=== PATIENT | male | born 1950 | race Caucasian/White ===

== ENCOUNTER 2022-10-21 10:53 | Inpatient (IN) ==
--- NOTE | 2022-10-21 11:32 | Emergency Department Note ---
History of Present Illness General Chief complaint: Urinary Symptoms Stated complaint: ILLNESS, DARK URINE Time Seen by Provider: 10/21/22 11:11 Source: patient, family (Daughter who is at the bedside), RN notes reviewed and old records reviewed Mode of arrival: EMS Limitations: no limitations History of Present Illness This patient is a 71-year-old male with a complex medical history comes in after feeling sick for about a week he has had foul-smelling urine has been dark he has some frequency. He had abdominal pain and back pain at x2 he still very weak he has some pain in both his legs yesterday but that is resolved. He may have had some diarrhea at 1 point. No blood or definite melena in the stool. No rash. He has some chronic lower extremity edema which is fine if he takes his medications. He has some shoulder blade pain a couple days ago but that is gone away no chest pain occasional cough this been nonproductive. No definite sick contacts. He does have a chronic issues with hernias but he has had no pain or swelling compared to baseline he denies that he is on any blood thinners. No trauma or injury Home Medications Medication Instructions Recorded Confirmed Type amlodipine 2.5 mg tablet 2.5 mg PO BID 01/11/21 10/21/22 History aspirin 81 mg tablet 81 mg PO QAM 01/11/21 10/21/22 History carvedilol 12.5 mg tablet 12.5 mg PO BID 01/11/21 10/21/22 History evolocumab 140 mg/mL subcutaneous 140 mg subcut UD 01/11/21 10/21/22 History syringe (Repatha Syringe) furosemide 40 mg tablet 40 mg PO QAM 01/11/21 10/21/22 History losartan 50 mg tablet 50 mg PO BID 01/11/21 10/21/22 History metformin 500 mg tablet 500 mg PO BID 01/11/21 10/21/22 History semaglutide 0.25 mg or 0.5 mg (2 0.5 mg subcut WK 02/25/21 10/21/22 History mg/1.5 mL) subcutaneous pen injector (Ozempic) acetaminophen 500 mg tablet 500 mg PO Q6H PRN Pain 10/19/21 10/21/22 History famotidine 20 mg tablet (Pepcid) 20 mg PO BID 10/19/21 10/21/22 History nitroglycerin 0.4 mg sublingual 0.4 mg sublingual UD PRN Chest Pain 10/21/22 History tablet Allergies Allergy/AdvReac Type Severity Reaction Status Date / Time lamar Allergy Intermediate Scratchy Verified 01/17/22 06:06 throat metoprolol Allergy Intermediate Itching, Verified 01/17/22 06:06 edema lisinopril Allergy Mild Rash Verified 01/17/22 06:06 potato AdvReac Intermediate Scratchy Verified 01/17/22 06:06 throat (with raw potatoes/carrots) [id number] Reductase AdvReac Intermediate Muscle Verified 01/17/22 06:06 Inhibitor pain, [[id number]-Dam Reductase joint pain Inhibitor] Past Med/Surg History Medical History (Updated 10/21/22 @ 18:14 by Jovan Jefferson MD) BPH (benign prostatic hyperplasia) CAD (coronary artery disease) S/p BIENVENIDO to RCA 2019 Diabetes mellitus, type 2 NIDDM Diastolic dysfunction GERD (gastroesophageal reflux disease) Hyperlipidemia Statin intolerance Hypertension Myocardial Infarction STEMI (2019) > stent x1 NATHAN (obstructive sleep apnea) Sleep apnea CPAP Surgical History H/O inguinal hernia repair RT/LEFT Hx of bilateral hip replacements Hx of cardiac cath S/p BIENVENIDO to RCA (2019) Hx of colonoscopy Hx of lipoma removed from shoulder Hx of tooth extraction Family History Sister Family history of diabetes mellitus Brother Family history of diabetes mellitus Grandfather (Paternal) Family history of diabetes mellitus Other No family history of adverse response to anesthesia Social History Smoking Status: Never smoker Second Hand Exposure: Yes (PARENTS SMOKED); Hx Alcohol Use: Yes Alcohol type: beer Preferred Language: [place] Communication Ability: Effective Air Conditioning Supervisor Required: No Beliefs That Will Affect Care: None Current Living Situation: Spouse current occupational status: retired current occupation: retired Feels Safe at Home: Yes Assistive Devices: Denture - Upper, Denture - Lower and Glasses Review of Systems A total of 10 systems reviewed and were otherwise negative Physical Exam Vital Signs Vital Signs - 24 hr 10/21/22 11:00 10/21/22 11:25 10/21/22 11:54 Temperature 37.7 C H Temperature Source Oral Pulse Rate 95 H Pulse Rate [Apical] 99 H Pulse Rate from SpO2 Sensor Respiratory Rate 18 20 Respiratory Effort / Characteristics Non-Labored Spontaneous Non-Labored Spontaneous Respiratory Depth Normal Normal Blood Pressure 124/75 Blood Pressure [Right Arm] 127/72 Blood Pressure Mean 91 Blood Pressure Mean [Right Arm] 90 Pulse Oximetry 94 95 93 Oxygen Delivery Method Room Air Room Air Room Air Sepsis Recent Fever Within 48 Hours No Sepsis New/Unexplained Change in Mental Status No Sepsis Action Taken by Nursing No Action Required 10/21/22 12:45 10/21/22 13:23 10/21/22 14:32 Temperature Temperature Source Pulse Rate Pulse Rate [Apical] 100 H 98 H 94 H Pulse Rate from SpO2 Sensor Respiratory Rate 18 20 20 Respiratory Effort / Characteristics Non-Labored Spontaneous Non-Labored Spontaneous Non-Labored Spontaneous Respiratory Depth Normal Normal Normal Blood Pressure Blood Pressure [Right Arm] 118/66 116/69 111/64 Blood Pressure Mean Blood Pressure Mean [Right Arm] 83 84 79 Pulse Oximetry 93 92 93 Oxygen Delivery Method Room Air Room Air Room Air Sepsis Recent Fever Within 48 Hours Sepsis New/Unexplained Change in Mental Status Sepsis Action Taken by Nursing 10/21/22 11:02 10/21/22 11:10 10/21/22 11:20 Temperature Temperature Source Pulse Rate 100 H 100 H 97 H Pulse Rate [Apical] Pulse Rate from SpO2 Sensor 100 H 100 H 98 H Respiratory Rate 24 22 15 Respiratory Effort / Characteristics Respiratory Depth Blood Pressure Blood Pressure [Right Arm] Blood Pressure Mean Blood Pressure Mean [Right Arm] Pulse Oximetry 94 90 92 Oxygen Delivery Method Sepsis Recent Fever Within 48 Hours Sepsis New/Unexplained Change in Mental Status Sepsis Action Taken by Nursing 10/21/22 11:30 10/21/22 11:40 10/21/22 11:50 Temperature Temperature Source Pulse Rate 100 H 103 H 98 H Pulse Rate [Apical] Pulse Rate from SpO2 Sensor 103 H 98 H Respiratory Rate 20 20 Respiratory Effort / Characteristics Respiratory Depth Blood Pressure Blood Pressure [Right Arm] Blood Pressure Mean Blood Pressure Mean [Right Arm] Pulse Oximetry 94 92 Oxygen Delivery Method Sepsis Recent Fever Within 48 Hours Sepsis New/Unexplained Change in Mental Status Sepsis Action Taken by Nursing 10/21/22 11:54 10/21/22 11:54 10/21/22 12:00 Temperature Temperature Source Pulse Rate 99 H 99 H Pulse Rate [Apical] Pulse Rate from SpO2 Sensor Respiratory Rate 20 20 Respiratory Effort / Characteristics Respiratory Depth Blood Pressure 127/72 Blood Pressure [Right Arm] Blood Pressure Mean 90 Blood Pressure Mean [Right Arm] Pulse Oximetry Oxygen Delivery Method Sepsis Recent Fever Within 48 Hours Sepsis New/Unexplained Change in Mental Status Sepsis Action Taken by Nursing 10/21/22 12:28 10/21/22 12:33 10/21/22 12:40 Temperature Temperature Source Pulse Rate 100 H 100 H 101 H Pulse Rate [Apical] Pulse Rate from SpO2 Sensor 100 H 100 H Respiratory Rate 22 22 Respiratory Effort / Characteristics Respiratory Depth Blood Pressure Blood Pressure [Right Arm] Blood Pressure Mean Blood Pressure Mean [Right Arm] Pulse Oximetry 91 91 Oxygen Delivery Method Sepsis Recent Fever Within 48 Hours Sepsis New/Unexplained Change in Mental Status Sepsis Action Taken by Nursing 10/21/22 12:44 10/21/22 12:44 10/21/22 12:50 Temperature Temperature Source Pulse Rate 104 H 98 H Pulse Rate [Apical] Pulse Rate from SpO2 Sensor 98 H 99 H Respiratory Rate 24 14 Respiratory Effort / Characteristics Respiratory Depth Blood Pressure 118/66 Blood Pressure [Right Arm] Blood Pressure Mean 83 Blood Pressure Mean [Right Arm] Pulse Oximetry 90 90 Oxygen Delivery Method Sepsis Recent Fever Within 48 Hours Sepsis New/Unexplained Change in Mental Status Sepsis Action Taken by Nursing 10/21/22 13:00 10/21/22 13:00 10/21/22 13:10 Temperature Temperature Source Pulse Rate 99 H 99 H Pulse Rate [Apical] Pulse Rate from SpO2 Sensor 100 H 99 H Respiratory Rate 23 20 Respiratory Effort / Characteristics Respiratory Depth Blood Pressure 116/69 Blood Pressure [Right Arm] Blood Pressure Mean 84 Blood Pressure Mean [Right Arm] Pulse Oximetry 90 90 Oxygen Delivery Method Sepsis Recent Fever Within 48 Hours Sepsis New/Unexplained Change in Mental Status Sepsis Action Taken by Nursing 10/21/22 13:20 10/21/22 13:30 10/21/22 13:30 Temperature Temperature Source Pulse Rate 98 H 99 H Pulse Rate [Apical] Pulse Rate from SpO2 Sensor 98 H 101 H Respiratory Rate 20 18 Respiratory Effort / Characteristics Respiratory Depth Blood Pressure 113/66 Blood Pressure [Right Arm] Blood Pressure Mean 81 Blood Pressure Mean [Right Arm] Pulse Oximetry 90 92 Oxygen Delivery Method Sepsis Recent Fever Within 48 Hours Sepsis New/Unexplained Change in Mental Status Sepsis Action Taken by Nursing 10/21/22 13:40 10/21/22 13:50 10/21/22 14:00 Temperature Temperature Source Pulse Rate 97 H 96 H Pulse Rate [Apical] Pulse Rate from SpO2 Sensor 98 H 96 H Respiratory Rate 17 20 Respiratory Effort / Characteristics Respiratory Depth Blood Pressure 117/67 Blood Pressure [Right Arm] Blood Pressure Mean 83 Blood Pressure Mean [Right Arm] Pulse Oximetry 92 90 Oxygen Delivery Method Sepsis Recent Fever Within 48 Hours Sepsis New/Unexplained Change in Mental Status Sepsis Action Taken by Nursing 10/21/22 14:00 10/21/22 14:11 10/21/22 14:20 Temperature Temperature Source Pulse Rate 94 H 94 H 96 H Pulse Rate [Apical] Pulse Rate from SpO2 Sensor 96 H 95 H 95 H Respiratory Rate 20 22 22 Respiratory Effort / Characteristics Respiratory Depth Blood Pressure Blood Pressure [Right Arm] Blood Pressure Mean Blood Pressure Mean [Right Arm] Pulse Oximetry 90 90 90 Oxygen Delivery Method Sepsis Recent Fever Within 48 Hours Sepsis New/Unexplained Change in Mental Status Sepsis Action Taken by Nursing 10/21/22 14:30 10/21/22 14:30 Temperature Temperature Source Pulse Rate 94 H Pulse Rate [Apical] Pulse Rate from SpO2 Sensor 96 H Respiratory Rate 20 Respiratory Effort / Characteristics Respiratory Depth Blood Pressure 111/64 Blood Pressure [Right Arm] Blood Pressure Mean 79 Blood Pressure Mean [Right Arm] Pulse Oximetry 90 Oxygen Delivery Method Sepsis Recent Fever Within 48 Hours Sepsis New/Unexplained Change in Mental Status Sepsis Action Taken by Nursing General: Well developed well nourished older male who appears in no acute distress, breathing comfortably on room air. Normal speech HEENT: Normal cephalic atraumatic. Pupils are equal round and reactive to light. Extraocular movements are intact. Oropharynx is pink with moist mucous membranes. No swelling of the mouth lips or tongue. Neck: Supple with a midline trachea. No meningeal signs or stiffness, no JVD or bruits. No Stridor. Chest: Clear to auscultation bilaterally. No wheezes or rhonchi. No increased work of breathing. Heart: Regular rate and rhythm without murmurs or gallops. Abdomen: Soft nontender, nondistended without rebound guarding or rigidity. Extremities: No cyanosis clubbing or edema. No calf tenderness or assymetry. 2+ distal pulses Spine/Back. Non tender to palpation. No CVA tenderness Skin: Good turgor without rashes. Neurologic exam: Cranial nerves two through 12 are intact. Motor and sensation are intact and symmetrical throughout. Course Administered Medications Acetaminophen (Acetaminophen 325 Mg Tab) 650 mg PO Q4H PRN PRN Reason: Pain or Fever Stop: 11/20/22 17:06 Last Admin: 10/21/22 17:44 Dose: 650 mg Documented By: FLAQUITO Enoxaparin Sodium (Enoxaparin Inj 40 Mg/0.4 Ml Syr) 40 mg SQ Q24H ROBERTA Stop: 11/20/22 17:29 Last Admin: 10/21/22 17:45 Dose: 40 mg Documented By: FLAQUITO Insulin Aspart (Insulin Aspart Per Unit) 0 units SC ACHS ROBERTA Stop: 11/20/22 17:06 Last Admin: 10/21/22 17:45 Dose: 3 units Documented By: FLAQUITO Co-signed By: NRParker Discontinued Medications Ceftriaxone Sodium (Rocephin) 2,000 mg in 70 mls @ 140 mls/hr IV NOW STA Stop: 10/21/22 12:58 Last Infusion: 10/21/22 13:23 Dose: 0 mls/hr Documented By: Admin: 10/21/22 12:45 Dose: 140 mls/hr Documented By: YUKO Sodium Chloride (Nss 1000ml) 250 mls @ 999 mls/hr IV .Q16M ONE Stop: 10/21/22 12:50 Last Infusion: 10/21/22 13:03 Dose: 0 mls/hr Documented By: Admin: 10/21/22 12:45 Dose: 999 mls/hr Documented By: YUKO Sodium Chloride (Nss) 500 mls @ 125 mls/hr IV .Q4H ROBERTA Stop: 11/20/22 12:44 Last Infusion: 10/21/22 16:26 Dose: 0 mls/hr Documented By: Admin: 10/21/22 12:45 Dose: 125 mls/hr Documented By: YUKO Potassium Chloride (Potassium Chloride Crtab 20 Meq Tabcr) 40 meq PO NOW ONE Stop: 10/21/22 17:16 Last Admin: 10/21/22 17:44 Dose: 40 meq Documented By: FLAQUITO Medical Decision Making Differential Diagnosis Sepsis, UTI, obstructive uropathy, pneumonia, cardiac disease, CHF, electrolyte or metabolic abnormality Medical Records Attestation: I reviewed the patient's medical records. Home Medications Current Medication List: was personally reviewed by me Laboratory Data Attestation: I reviewed the patient's lab results. 10/21/22 11:30 10/21/22 11:30 Lab Results 10/21/22 10/21/22 10/21/22 Range/Units 11:30 11:30 11:30 WBC 3.17 L (4.8-10.8) K/ul RBC 4.53 L (4.70-6.10) M/uL Hgb 13.8 L (14.0-18.0) g/dl Hct 40.2 L (42.0-52.0) % MCV 88.7 (80.0-100.0) fL MCH 30.5 (25.0-34.0) pg MCHC 34.3 (32.0-36.0) g/dL RDW Std Deviation 39.8 (36.4-46.3) fL RDW Coeff of Zachary 12.2 (11.5-14.5) % Plt Count 153 (130-400) K/uL MPV 10.4 (9.4-12.4) fL Immature Gran % (Auto) 0.3 % Neut % (Auto) 92.8 % Lymph % (Auto) 2.5 % Cascade % (Auto) 1.9 % Eos % (Auto) 1.9 % Baso % (Auto) 0.6 % Neut # (Auto) 2.94 (1.40-6.50) K/uL Lymph # (Auto) 0.08 L (1.2-3.4) K/uL Cascade # (Auto) 0.06 L (0.11-0.59) K/uL Eos # (Auto) 0.06 (0-0.50) K/uL Baso # (Auto) 0.02 (0-0.2) K/uL Immature Gran # (Auto) 0.01 (0.01-0.20) K/uL Toxic Granulation 1+ Toxic Vacuolation 1+ Tear Drop Cells 1+ Sodium 138 (136-145) mmol/L Potassium 3.4 L (3.5-5.1) mmol/L Chloride 100 (98-107) mmol/L Carbon Dioxide 31 (21-32) mmol/L Anion Gap 7 (3-11) BUN 17 (6-23) mg/dl Creatinine 1.12 (0.6-1.4) mg/dl Est Cr Clr Drug Dosing 69.0 ml/min Est GFR ( Amer) 75.7 ml/min Est GFR (Non-Af Amer) 65.3 ml/min BUN/Creatinine Ratio 15.2 (10-20) Glucose 152 H (70-99(Fasting)) mg/dl Lactate 1.9 (0.4-2.0) mmol/L Calcium 8.6 (8.5-10.1) mg/dl Total Bilirubin 1.1 H (0.2-1.0) mg/dl AST 17 (13-39) U/L ALT 18 (7-52) U/L Alkaline Phosphatase 92 (34-104) U/L Troponin I High Sens 12.6 (0-20) pg/ml B-Natriuretic Peptide (0-100) pg/ml Total Protein 6.4 (6.0-8.3) gm/dl Albumin 3.6 (3.4-5.0) gm/dl Globulin 2.8 (2.5-4.0) gm/dl Albumin/Globulin Ratio 1.3 (0.9-2) Lipase 39 (11-82) U/L Procalcitonin (0-0.5) ng/ml SARS-CoV-2 (PCR) (Negative) Influenza Type A (PCR) (Neg) Influenza Type B (PCR) (Neg) RSV (RT-PCR) (Neg) 10/21/22 10/21/22 10/21/22 Range/Units 11:30 11:30 11:30 WBC (4.8-10.8) K/ul RBC (4.70-6.10) M/uL Hgb (14.0-18.0) g/dl Hct (42.0-52.0) % MCV (80.0-100.0) fL MCH (25.0-34.0) pg MCHC (32.0-36.0) g/dL RDW Std Deviation (36.4-46.3) fL RDW Coeff of Zachary (11.5-14.5) % Plt Count (130-400) K/uL MPV (9.4-12.4) fL Immature Gran % (Auto) % Neut % (Auto) % Lymph % (Auto) % Cascade % (Auto) % Eos % (Auto) % Baso % (Auto) % Neut # (Auto) (1.40-6.50) K/uL Lymph # (Auto) (1.2-3.4) K/uL Cascade # (Auto) (0.11-0.59) K/uL Eos # (Auto) (0-0.50) K/uL Baso # (Auto) (0-0.2) K/uL Immature Gran # (Auto) (0.01-0.20) K/uL Toxic Granulation Toxic Vacuolation Tear Drop Cells Sodium (136-145) mmol/L Potassium (3.5-5.1) mmol/L Chloride (98-107) mmol/L Carbon Dioxide (21-32) mmol/L Anion Gap (3-11) BUN (6-23) mg/dl Creatinine (0.6-1.4) mg/dl Est Cr Clr Drug Dosing ml/min Est GFR ( Amer) ml/min Est GFR (Non-Af Amer) ml/min BUN/Creatinine Ratio (10-20) Glucose (70-99(Fasting)) mg/dl Lactate (0.4-2.0) mmol/L Calcium (8.5-10.1) mg/dl Total Bilirubin (0.2-1.0) mg/dl AST (13-39) U/L ALT (7-52) U/L Alkaline Phosphatase (34-104) U/L Troponin I High Sens (0-20) pg/ml B-Natriuretic Peptide 54 (0-100) pg/ml Total Protein (6.0-8.3) gm/dl Albumin (3.4-5.0) gm/dl Globulin (2.5-4.0) gm/dl Albumin/Globulin Ratio (0.9-2) Lipase (11-82) U/L Procalcitonin 1.15 H (0-0.5) ng/ml SARS-CoV-2 (PCR) NEGATIVE (Negative) Influenza Type A (PCR) Negative (Neg) Influenza Type B (PCR) Negative (Neg) RSV (RT-PCR) Negative (Neg) Imaging Data Attestation: I personally reviewed and interpreted this imaging study as follows: My Impression: Upon my interpretation- chest x-rayno acute infiltrate, failure, pneumothorax seen Radiologist's Impression: Abdomen/Pelvis CT 10/21/22 11:[address] WITHOUT CONTRAST CT DOSE: 821.85 mGy.cm HISTORY: Acute generalized abdominal pain with fever abd pain, fever TECHNIQUE: Multiaxial CT images of the abdomen and pelvis were performed without contrast. A dose lowering technique was utilized adhering to the principles of ALARA. COMPARISON STUDY: Chest radiograph of same day FINDINGS: Mild cardiomegaly with trace pericardial effusion. Coronary artery calcifications. Mild linear scarring versus atelectasis of the basal left lower lobe. 3 mm subpleural solid nodule of the right middle lobe, image 33. No pneumatosis or pneumoperitoneum. The unenhanced spleen is mildly enlarged, 14.6 cm. Unremarkable pancreas and adrenal glands. Mild distention of the gallbladder. Hepatic steatosis with mild hepatomegaly. No hepatic mass identified. Nonspecific bilateral perinephric stranding. No ureteral calculi or hydronephrosis. Probable cyst of the posterior interpolar left kidney, 1.7 cm. Prostamegaly with urinary bladder wall thickening and partial distention. The pelvic structures are not well seen secondary to streak artifact from the hip arthroplasties. Small moderate right and moderate left inguinal hernias containing mesenteric fat, trace fluid and nonobstructed loops of bowel. Atherosclerosis of the aorta without aneurysm. 9 mm precaval lymph node on image 263. Mild nonspecific distal esophageal wall thickening. Colonic diverticulosis. No bowel obstruction or bowel wall thickening. Moderate colonic fecal retention. Normal appendix. Mild gynecomastia. Degenerative changes of the spine. Bilateral hip total joint arthroplasties. No acute fracture or destructive bone lesion identified. Mild lumbar levoscoliosis. IMPRESSION: 1. No bowel obstruction or bowel wall thickening. 2. Prostamegaly with bladder wall thickening suggestive of chronic bladder outlet obstruction. Correlate with urinalysis to exclude cystitis. 3. No urolith or hydronephrosis. 4. Left greater than right bowel-containing inguinal hernias. 5. Mild hepatosplenomegaly with hepatic steatosis. 6. Mild distention of the gallbladder. ACT 112: Negative or not required by law. The above report was generated using voice recognition software. It may contain grammatical, syntax or spelling errors. Electronically signed by: King Sanders M.D. 10/21/2022 1:22 PM Chest X-Ray 10/21/22 11:25 XR chest 1V portable HISTORY: 71 years-old Male fever acute shortness of breath with fever COMPARISON: Chest radiographs 08/09/2011 TECHNIQUE: AP view of the chest FINDINGS: Cardiomediastinal and hilar silhouettes are within normal limits. No pneumothorax, pleural effusion, airspace consolidation or overt pulmonary edema. Degenerative changes of the shoulders and spine. IMPRESSION: No acute process. ACT 112: Negative or not required by law. The above report was generated using voice recognition software. It may contain grammatical, syntax or spelling errors. Electronically signed by: King Sanders M.D. 10/21/2022 11:[address] 10/21/22 13:32 CT head/brain wo con CLINICAL HISTORY: AMS Technique: Contiguous axial CT images of the head were acquired from the base of the skull to the vertex without intravenous contrast administration. Images were viewed in brain, subdural and bone windows. Automated dose lowering techniques and/or adjustment according to patient size were utilized for this exam. Comparison: None available at the time of this dictation. Findings: Areas of decreased attenuation are present in the periventricular and subcortical white matter bilaterally consistent with small vessel ischemic disease. Generalized cerebral atrophy with commensurate enlargement of the ventricles, sulci, and cisterns is also present. There is no acute intracranial hemorrhage or evidence of acute territorial infarction. No shift of the midline structures, mass effect, or extra-axial abnormalities are shown. Atherosclerotic calcifications are present in the intracranial segments of the internal carotid arteries. Imaged portions of the paranasal sinuses and mastoid air cells are clear. The orbits appear normal. There are no acute fractures of the calvaria or scalp swelling. Impression: No acute intracranial hemorrhage, no evidence of acute territorial infarction or other acute intracranial disease process. ACT 112: Negative or not required by law. Electronically signed by: Danish Witt M.D. 10/21/2022 2:53 PM ECG Data Attestation: I personally reviewed and interpreted this ECG as follows: Indication: + chest pain Rate (beats per minute): 106 Rhythm: + normal sinus ECG Intervals/blocks: + Normal QRS, + Normal QT and + Normal [place] ECG Dewitt: + Normal ECG ST segments: + Normal ST segments ECG Findings: + Q waves (Inferiorly); no PACs or no PVCs Comparison ECG Date: from (08/09/2011) Change: the following changes noted (Has increased) MDM Narrative This patient is a 71-year-old male has a complex medical history including cardiac disease, comes in after feeling ill since Monday he has had some urinary symptoms as well as generalized weakness and back pain. I did order sepsis type work-up he is a low-grade temperature 37.7 here. Blood work including blood cultures was obtained urinalysis was obtained chest x-ray COVID testing. I also did a CAT scan of the abdomen and pelvis without contrast to rule out any obstructive uropathy and other intra-abdominal pathology. Otherwise concern for sepsis his initial blood pressure looks good and with his history of CHF. I did not want to fluid overload him so initially did not give him any fluids. His chest x-ray was clear and his BNP and troponin were normal so I did give him a 250 cc normal saline bolus and ran out relief fluids. His lactic acid is not elevated nor is his white count and his been normotensive so he I do not think he needs a 30/kg bolus at this rate anyways. His family thinks he is a little more confused than normal and he does have a UTI which I think is causing this. CAT scan the abdomen shows findings consistent with cystitis likely. I did di scuss and consult her ED pharmacist for his antibiotic choice and we went through his chart. We have chosen to give him Rocephin 2 g IV which was ordered. I called and talked to the Eduarda Rubio and discussed the case with her and she agrees with the plan and they will come see the patient in ER and admit him for these measures. I discussed the plan with the family and they are happy with the plan and he will be admitted for further treatment and evaluation Continuous cardiac monitoring: Orders placed in EMR for continuous monitoring and evaluation advisor. Upon my interpretation the patient was noted to be in normal sinus rhythm rate of 90 Impression & Plan Metabolic encephalopathy, UTI (urinary tract infection), Lab test negative for COVID-19 virus, Abdominal pain, suprapubic, DM2 (diabetes mellitus, type 2) Discharge Plan Visit Data Chief Complaint: Urinary Symptoms Stated Complaint: ILLNESS, DARK URINE ED Provider: Jovan Jefferson Discharge Problem: Metabolic encephalopathy, UTI (urinary tract infection), Lab test negative for COVID-19 virus, Abdominal pain, suprapubic, DM2 (diabetes mellitus, type 2) Discharge Instructions Interventions: ED Discharge Assessment Last Done: 10/21/22 16:45
[2022-10-21 11:48] LABS: Hematocrit (blood only) 40.2 % (42.0-52.0); Hemoglobin 13.8 g/dl (14.0-18.0); Mean Corpuscular Hemoglobin 30.5 pg (25.0-34.0); Mean Corpuscular Hgb Conc 34.3 g/dL (32.0-36.0); Mean Corpuscular Volume 88.7 fL (80.0-100.0); Mean Platelet Volume 10.4 fL (9.4-12.4); Platelet Count 153 K/uL (130-400); RDW Coefficient of Variation 12.2 % (11.5-14.5); RDW Standard Deviation 39.8 fL (36.4-46.3); Red Blood Count 4.53 M/uL (4.70-6.10); White Blood Count 3.17 K/ul (4.8-10.8)
--- NOTE | 2022-10-21 11:55 | XRay Report ---
XR chest 1V portable HISTORY: 71 years-old Male fever acute shortness of breath with fever COMPARISON: Chest radiographs 08/09/2011 TECHNIQUE: AP view of the chest FINDINGS: Cardiomediastinal and hilar silhouettes are within normal limits. No pneumothorax, pleural effusion, airspace consolidation or overt pulmonary edema. Degenerative changes of the shoulders and spine. IMPRESSION: No acute process. ACT 112: Negative or not required by law. The above report was generated using voice recognition software. It may contain grammatical, syntax o r spelling errors. Electronically signed by: King Sanders M.D. 10/21/2022 11:53 AM
[2022-10-21 11:57] LABS: Appearance Urine Cloudy (Clear); Bacteria Urine Automated 4+ (Negative); Bilirubin Urine Negative (Negative); Blood Urine 2+ (Negative); Color Urine Yellow; Glucose Urine UA Negative (Negative); Ketones Urine Negative (Negative); Leukocyte Esterase Urine 3+ (Negative); Nitrite Urine Positive (Negative); Protein Urine 2+ (Negative); Specific Gravity Urine 1.014 (1.000-1.030); Urobilinogen Urine Negative (Negative); WBC Urine Automated >30 /hpf (0-5); pH Urine 6.5 (4.5-7.5)
[2022-10-21 12:11] LABS: Basophils # (auto) 0.02 K/uL (0-0.2); Basophils % (auto) 0.6 %; Eosinophils # (auto) 0.06 K/uL (0-0.50); Eosinophils % (auto) 1.9 %; Immature Granulocytes # (auto) 0.01 K/uL (0.01-0.20); Immature Granulocytes % (auto) 0.3 %; Lymphocytes # (auto) 0.08 K/uL (1.2-3.4); Lymphocytes % (auto) 2.5 %; Monocytes # (auto) 0.06 K/uL (0.11-0.59); Monocytes % (auto) 1.9 %; Neutrophils # (auto) 2.94 K/uL (1.40-6.50); Neutrophils % (auto) 92.8 %; Tear Drop Cells 1+; Toxic Granulation 1+; Toxic Vacuolation 1+
[2022-10-21 12:22] LABS: Troponin I High Sensitivity 12.6 pg/ml (0-20)
[2022-10-21] MEDS ORDERED: cefTRIAXone SODIUM 2,000 MG/70 ML BAG IV STA (12:29)
[2022-10-21] MEDS ORDERED: SODIUM CHLORIDE 0.9% 1000ML 250 ML IV ONE (12:35)
[2022-10-21 12:39] LABS: Albumin Level 3.6 gm/dl (3.4-5.0); Bilirubin,Total 1.1 mg/dl (0.2-1.0); Calcium 8.6 mg/dl (8.5-10.1); Potassium 3.4 mmol/L (3.5-5.1)
[2022-10-21 12:45] LABS: Albumin Globulin Ratio 1.3 (0.9-2); BUN Creatinine Ratio 15.2 (10-20); Est GFR (African American) 75.7 ml/min; Est GFR (Non-African American) 65.3 ml/min; Globulin 2.8 gm/dl (2.5-4.0); Total Protein 6.4 gm/dl (6.0-8.3)
[2022-10-21] MEDS: SODIUM CHLORIDE 0.9% 500 ML IV SCH (12:45)
[2022-10-21 13:03] LABS: Influenza A virus by PCR Negative (Neg); Influenza B virus by PCR Negative (Neg); RSV by PCR Negative (Neg); SARS CoV2 RNA(COVID-19) Ceph NEGATIVE (Negative)
--- NOTE | 2022-10-21 13:24 | CT Scan Report ---
ABDOMEN AND PELVIS CT WITHOUT CONTRAST CT DOSE: 821.85 mGy.cm HISTORY: Acute generalized abdominal pain with fever abd pain, fever TECHNIQUE: Multiaxial CT images of the abdomen and pelvis were performed without contrast. A dose lo wering technique was utilized adhering to the principles of ALARA. COMPARISON STUDY: Chest radiograph of same day FINDINGS: Mild cardiomegaly with trace pericardial effusion. Coronary artery calcifications. Mild jeff ear scarring versus atelectasis of the basal left lower lobe. 3 mm subpleural solid nodule of the rig ht middle lobe, image 33. No pneumatosis or pneumoperitoneum. The unenhanced spleen is mildly enlarged, 14.6 cm. Unremarkable pancreas and adrenal glands. Mild dis tention of the gallbladder. Hepatic steatosis with mild hepatomegaly. No hepatic mass identified. Non specific bilateral perinephric stranding. No ureteral calculi or hydronephrosis. Probable cyst of the posterior interpolar left kidney, 1.7 cm. Prostamegaly with urinary bladder wall thickening and part ial distention. The pelvic structures are not well seen secondary to streak artifact from the hip art hroplasties. Small moderate right and moderate left inguinal hernias containing mesenteric fat, trace fluid and nonobstructed loops of bowel. Atherosclerosis of the aorta without aneurysm. 9 mm precaval lymph node on image 263. Mild nonspecific distal esophageal wall thickening. Colonic diverticulosis. No bowel obstruction or b owel wall thickening. Moderate colonic fecal retention. Normal appendix. Mild gynecomastia. Degenerat kumra changes of the spine. Bilateral hip total joint arthroplasties. No acute fracture or destructive bone lesion identified. Mild lumbar levoscoliosis. IMPRESSION: 1. No bowel obstruction or bowel wall thickening. 2. Prostamegaly with bladder wall thickening suggestive of chronic bladder outlet obstruction. Correl ate with urinalysis to exclude cystitis. 3. No urolith or hydronephrosis. 4. Left greater than right bowel-containing inguinal hernias. 5. Mild hepatosplenomegaly with hepatic steatosis. 6. Mild distention of the gallbladder. ACT 112: Negative or not required by law. The above report was generated using voice recognition software. It may contain grammatical, syntax o r spelling errors. Electronically signed by: King Sanders M.D. 10/21/2022 1:22 PM
--- NOTE | 2022-10-21 13:24 | History & Physical Report ---
Date of Service October 21, 2022 Assessment & Plan (1) UTI (urinary tract infection): Plan: Patient is 71 y/o M with PMH DM II, HTN, dyslipidemia, CAD, [place] s/p BIENVENIDO RCA in 2019, chronic diastolic dysfunction, GERD, BPH, NATHAN presented to ER with complaints of dysuria x 6 days, generalized weakness, anorexia. Tactile fever with rigors today, confusion today In ER T: 37.7C, P: 95-100, R: 20, BP: 124/75, 94% on RA WBC: 3.2, Lactate: 1.9, procalcitonin: 1.15. Negative COVID-19, FLU, RSV PCR UA: +nitrite, 3+leuk esterase CXR: no acute process CT Abd/pelvis: Prostamegaly with bladder wall thickening suggestive of chronic bladder outlet obstruction. Correlate with urinalysis to exclude cystitis. No urolith or hydronephrosis. In ER given 250ml NSS bolus, Rocephin Urine culture pending Blood culture pending Possible Pyelonephritis with L CVA tenderness on exam IVF Rocephin Fall precautions PT/OT eval CBC, BMP in am (2) Metabolic encephalopathy: Plan: AMS likely secondary to UTI CT Head: negative acute intracranial abnormality Monitor (3) Hypokalemia: Plan: K: 3.4. Magnesium: 1.7 Replace and monitor (4) Diabetes mellitus, type 2: Plan: A1c: 5.7 on 07/29/22 Hold home glycemic meds Novolog sliding scale per protocol (5) CAD (coronary artery disease): Plan: [place] S/P BIENVENIDO RCA in 2019 Continue aspirin, carvedilol (6) Hypertension: Plan: Stable Continue carvedilol, losartan, amlodipien with holding parameters (7) Hyperlipidemia: Plan: History statin intolerance On Repatha every 2 weeks (8) Diastolic dysfunction: Plan: 02/2020 Echo: EF: 51%, grade 1 diastolic dysfunction Hold Lasix and reevaluate tomorrow (9) NATHAN (obstructive sleep apnea): Plan: CPAP HS (10) GERD (gastroesophageal reflux disease): Plan: Continue pepcid DVT Prophylaxis Lovenox SQ Full Code as per discussion with pt and pt's Follows with Dr Damon for routine care Pt was seen and care coordinated with Dr Zayas. See addendum I spent a total of 75 minutes reviewing notes, outpatient records, labs, medication, coordinating, documenting and providing care for this patient excluding time spent in the performance of separately billed services. History of Present Illness Chief Complaint: not feeling well Primary Care Provider: Raghavendra Damon DO Patient is 71 y/o M with PMH DM II, HTN, dyslipidemia, CAD, [place] s/p BIENVENIDO RCA in 2019, chronic diastolic dysfunction, GERD, BPH, NATHAN presented to ER with complaints of not feeling well and dysuria x 6 days. History of obtained from patient as well as patient's and patient's daughter and chart review. Patient states for the past 6 days has been having dysuria. Has been noticing dark-colored urine. 6 days ago started not feeling well with decreased appetite, malaise. Was having dizziness with standing. Denies headache or syncope. Has not been eating or drinking well. Patient complaining of discomfort to abdomen around his umbilicus describing it as "empty stomach hungry feeling". Last couple days has been having bilateral mid back pain. Past several days with generalized weakness with increased weakness today. Having difficulty walking. Today family noted patient with confusion. Had 2 negative home COVID-19 tests this week. Last night with sweats. Did not take temperature. This morning with chills and rigors. Denies ill contacts. Family wanted patient to be seen several days ago however he refused. Today with increased weakness and noted confusion brought patient to ER. Denies history of kidney stones. Denies N/V/D/C, SOTELO, syncope, vision changes, neck pain, CP, SOB, orthopnea, palpitations, cough, sore throat, choking, otalgia, rhinorrhea, paresthesias, extremity edema, rashes, hematuria. Allergies Allergy/AdvReac Type Severity Reaction Status Date / Time lamar Allergy Intermediate Scratchy Verified 01/17/22 06:06 throat metoprolol Allergy Intermediate Itching, Verified 01/17/22 06:06 edema lisinopril Allergy Mild Rash Verified 01/17/22 06:06 potato AdvReac Intermediate Scratchy Verified 01/17/22 06:06 throat (with raw potatoes/carrots) [id number] Reductase AdvReac Intermediate Muscle Verified 01/17/22 06:06 Inhibitor pain, [[id number] Reductase joint pain Inhibitor] Home Medications Medication Instructions Recorded Confirmed Type amlodipine 2.5 mg tablet 2.5 mg PO BID 01/11/21 10/21/22 History aspirin 81 mg tablet 81 mg PO QAM 01/11/21 10/21/22 History carvedilol 12.5 mg tablet 12.5 mg PO BID 01/11/21 10/21/22 History evolocumab 140 mg/mL subcutaneous 140 mg subcut UD 01/11/21 10/21/22 History syringe (Repatha Syringe) furosemide 40 mg tablet 40 mg PO QAM 01/11/21 10/21/22 History losartan 50 mg tablet 50 mg PO BID 01/11/21 10/21/22 History metformin 500 mg tablet 500 mg PO BID 01/11/21 10/21/22 History semaglutide 0.25 mg or 0.5 mg (2 0.5 mg subcut WK 02/25/21 10/21/22 History mg/1.5 mL) subcutaneous pen injector (Ozempic) acetaminophen 500 mg tablet 500 mg PO Q6H PRN Pain 10/19/21 10/21/22 History famotidine 20 mg tablet (Pepcid) 20 mg PO BID 10/19/21 10/21/22 History nitroglycerin 0.4 mg sublingual 0.4 mg sublingual UD PRN Chest Pain 10/21/22 10/21/22 History tablet Past Med/Surg History Medical History (Updated 10/21/22 @ 14:43 by Alysa Vargas PA-C) BPH (benign prostatic hyperplasia) CAD (coronary artery disease) S/p BIENVENIDO to RCA 2019 Diabetes mellitus, type 2 NIDDM Diastolic dysfunction GERD (gastroesophageal reflux disease) Hyperlipidemia Statin intolerance Hypertension Myocardial Infarction STEMI (2019) > stent x1 NATHAN (obstructive sleep apnea) Sleep apnea CPAP Surgical History H/O inguinal hernia repair RT/LEFT Hx of bilateral hip replacements Hx of cardiac cath S/p BIENVENIDO to RCA (2019) Hx of colonoscopy Hx of lipoma removed from shoulder Hx of tooth extraction Family History Sister Family history of diabetes mellitus Brother Family history of diabetes mellitus Grandfather (Paternal) Family history of diabetes mellitus Other No family history of adverse response to anesthesia Social History Smoking Status: Never smoker Second Hand Exposure: Yes (PARENTS SMOKED); Hx Alcohol Use: Yes Alcohol type: beer Preferred Language: Latvian Communication Ability: Effective Appellate Conferee Required: No Beliefs That Will Affect Care: None Current Living Situation: Spouse current occupational status: retired current occupation: retired Feels Safe at Home: Yes Assistive Devices: Denture - Upper, Denture - Lower and Glasses Review of Systems Review of Systems: All systems reviewed & are unremarkable except as noted in HPI & below Physical Exam Physical Exam: General: no acute distress, WDWN Head: normocephalic, atraumatic Eyes: PERRL, EOM's intact, conjunctiva non-injected, anicteric ENT: normal inspection external ears, nose, mucous membranes mildly dry Neck: supple, trachea midline Lungs: clear, no respiratory distress, no wheezing/rhonchi/rales CV: RRR, no murmur, trace pretibial edema Abd: normal BS, soft, +tenderness to palpation suprapubic, +left CVA tenderness to percussion Ext: no cyanosis, no calf tenderness Neuro: A&O to person, month, day, year. [facility] for location. +intermittent confusion noted, no focal deficits noted, normal affect Skin: warm, dry Results & Data Results & Data ([facility]) Vital Signs (Past 12 Hours) Vital Signs Temp Pulse Pulse Resp BP BP Pulse Ox 10/21/22 12:45 100 H 18 118/66 93 10/21/22 11:54 99 H 20 127/72 93 10/21/22 11:25 95 10/21/22 11:00 37.7 C H 95 H 18 124/75 94 O2 Del Method 10/21/22 12:45 Room Air 10/21/22 11:54 Room Air 10/21/22 11:25 Room Air 10/21/22 11:00 Room Air Laboratory Results Short CBC 10/21/22 Range/Units 11:30 WBC 3.17 L (4.8-10.8) K/ul Hgb 13.8 L (14.0-18.0) g/dl Hct 40.2 L (42.0-52.0) % Plt Count 153 (130-400) K/uL BMP 10/21/22 11:30 Sodium 138 Potassium 3.4 L Chloride 100 Carbon Dioxide 31 BUN 17 Creatinine 1.12 Glucose 152 H Calcium 8.6 Liver Function 10/21/22 Range/Units 11:30 Total Bilirubin 1.1 H (0.2-1.0) mg/dl AST 17 (13-39) U/L ALT 18 (7-52) U/L Alkaline Phosphatase 92 (34-104) U/L Albumin 3.6 (3.4-5.0) gm/dl Urine 10/21/22 Range/Units Unknown Urine Color Yellow Urine Appearance Cloudy A (Clear) Urine pH 6.5 (4.5-7.5) Ur Specific [place] 1.014 (1.000-1.030) Urine Protein 2+ H (Negative) Urine Glucose (UA) Negative (Negative) Diagnostic Findings Abdomen/Pelvis CT 10/21/22 11:[address] WITHOUT CONTRAST CT DOSE: 821.85 mGy.cm HISTORY: Acute generalized abdominal pain with fever abd pain, fever TECHNIQUE: Multiaxial CT images of the abdomen and pelvis were performed without contrast. A dose lowering technique was utilized adhering to the principles of ALARA. COMPARISON STUDY: Chest radiograph of same day FINDINGS: Mild cardiomegaly with trace pericardial effusion. Coronary artery calcifications. Mild linear scarring versus atelectasis of the basal left lower lobe. 3 mm subpleural solid nodule of the right middle lobe, image 33. No pneumatosis or pneumoperitoneum. The unenhanced spleen is mildly enlarged, 14.6 cm. Unremarkable pancreas and adrenal glands. Mild distention of the gallbladder. Hepatic steatosis with mild hepatomegaly. No hepatic mass identified. Nonspecific bilateral perinephric stranding. No ureteral calculi or hydronephrosis. Probable cyst of the posterior interpolar left kidney, 1.7 cm. Prostamegaly with urinary bladder wall thickening and partial distention. The pelvic structures are not well seen secondary to streak artifact from the hip arthroplasties. Small moderate right and moderate left inguinal hernias containing mesenteric fat, trace fluid and nonobstructed loops of bowel. Atherosclerosis of the aorta without aneurysm. 9 mm precaval lymph node on image 263. Mild nonspecific distal esophageal wall thickening. Colonic diverticulosis. No bowel obstruction or bowel wall thickening. Moderate colonic fecal retention. Normal appendix. Mild gynecomastia. Degenerative changes of the spine. Bilateral hip total joint arthroplasties. No acute fracture or destructive bone lesion identified. Mild lumbar levoscoliosis. IMPRESSION: 1. No bowel obstruction or bowel wall thickening. 2. Prostamegaly with bladder wall thickening suggestive of chronic bladder outlet obstruction. Correlate with urinalysis to exclude cystitis. 3. No urolith or hydronephrosis. 4. Left greater than right bowel-containing inguinal hernias. 5. Mild hepatosplenomegaly with hepatic steatosis. 6. Mild distention of the gallbladder. ACT 112: Negative or not required by law. The above report was generated using voice recognition software. It may contain grammatical, syntax or spelling errors. Electronically signed by: King Sanders M.D. 10/21/2022 1:22 PM Chest X-Ray 10/21/22 11:25 XR chest 1V portable HISTORY: 71 years-old Male fever acute shortness of breath with fever COMPARISON: Chest radiographs 08/09/2011 TECHNIQUE: AP view of the chest FINDINGS: Cardiomediastinal and hilar silhouettes are within normal limits. No pneumothorax, pleural effusion, airspace consolidation or overt pulmonary edema. Degenerative changes of the shoulders and spine. IMPRESSION: No acute process. ACT 112: Negative or not required by law. The above report was generated using voice recognition software. It may contain grammatical, syntax or spelling errors. Electronically signed by: King Sanders M.D. 10/21/2022 11:53 AM ECG Rate (beats per minute): 106 Rhythm: sinus tachycardia Additional Comments: Q waves inferior leads. Seen on prior EKG from 07/28/2021 T wave inversion inferior seen on prior EKG from 03/16/2020 Supervising Physician Co-Signing Physician Notes Attending addendum: The patient was seen and examined in the emergency room in presence of the family members He has been complaining of lower abdominal pain associated with dark urine and dysuria since Monday last He also complains to have feeling cold and chilly associated with change in mental status noticed by the family members He has been feeling better since he has been in the emergency room On examination Lying in bed comfortably Hemodynamically stable, afebrile and pulse rate 94/min Chest-clear to auscultate bilaterally Heart-S1-S2, regular Abdomen-mildly tender in the hypogastrium, no swelling, no tenderness in the renal angles, bowel sound present Extremities-trace edema bilaterally [employer]EM[employer]-alert, awake and oriented x3, no focal sensory or no motor deficit appreciated His admission labs, EKG and imaging studies reviewed UA suggestive of infection Started on intravenous ceftriaxone after taking blood and sending urine for culture Has mild dehydration-we will give a small amount of intravenous Agree with assessment and plan as stated above by JOSE Nolen Dr
--- NOTE | 2022-10-21 14:55 | CT Scan Report ---
CT head/brain wo con CLINICAL HISTORY: AMS Technique: Contiguous axial CT images of the head were acquired from the base of the skull to the nikki rogerio without intravenous contrast administration. Images were viewed in brain, subdural and bone [facility]. Automated dose lowering techniques and/or adjustment according to patient size were utilized for this exam. Comparison: None available at the time of this dictation. Findings: Areas of decreased attenuation are present in the periventricular and subcortical white matter bilate rally consistent with small vessel ischemic disease. Generalized cerebral atrophy with commensurate e nlargement of the ventricles, sulci, and cisterns is also present. There is no acute intracranial hem orrhage or evidence of acute territorial infarction. No shift of the midline structures, mass effect, or extra-axial abnormalities are shown. Atherosclerotic calcifications are present in the intracran ial segments of the internal carotid arteries. Imaged portions of the paranasal sinuses and mastoid air cells are clear. The orbits appear normal. There are no acute fractures of the calvaria or scalp swelling. Impression: No acute intracranial hemorrhage, no evidence of acute territorial infarction or other acute intracra nial disease process. ACT 112: Negative or not required by law. Electronically signed by: Danish Witt M.D. 10/21/2022 2:53 PM
--- NOTE | 2022-10-21 15:32 | Electrocardiogram Report ---
Test Reason : Blood Pressure : / mmHG Vent. Rate : 106 BPM Atrial Rate : 106 BPM P-R Int : 172 ms QRS Dur : 092 ms QT Int : 348 ms P-R-T Axes : 049 -02 018 degrees QTc Int : 462 ms Poor data quality, interpretation may be adversely affected Sinus tachycardia Inferior infarct , age undetermined Abnormal ECG When compared with ECG of 09-AUG-2011 09:37, Vent. rate has increased BY 52 BPM Inferior infarct is now Present T wave inversion now evident in Inferior leads QT has lengthened Confirmed by Donaldo Jauregui ([id number]) on 10/21/2022 3:32:07 PM Referred By: REFERRED SELF Confirmed By:Sushil Jauregui
[2022-10-21] MEDS ORDERED: CARBOHYDRATES FOR HYPOGLYCEMIA PO PRN (17:07)
[2022-10-21] MEDS ORDERED: GLUCAGON FOR INJ 1 MG VIAL SQ PRN (17:07)
[2022-10-21] MEDS ORDERED: GLUCOSE 40% GEL 15 GM TUBE PO PRN (17:07)
[2022-10-21] MEDS ORDERED: GLUCOSE 10 TAB/TUBE PO PRN (17:07)
[2022-10-21] MEDS ORDERED: DEXTROSE 50% 50 ML SYRINGE IV PRN (17:07)
[2022-10-21] MEDS ORDERED: POLYETHYLENE (MIRALAX) 17 GM PACK PO PRN (17:07)
[2022-10-21] MEDS ORDERED: MAGNESIUM HYDROXIDE SUSP 30 ML UDC PO PRN (17:07)
[2022-10-21] MEDS ORDERED: POTASSIUM CHLORIDE CRTAB 20 MEQ TABCR PO ONE (17:15)
[2022-10-21] MEDS: ACETAMINOPHEN 325 MG TAB PO PRN ×2 (17:44→23:47)
[2022-10-21] MEDS: INSULIN ASPART PER UNIT SC SCH ×2 (17:45→20:15)
[2022-10-21] MEDS: ENOXAPARIN INJ 40 MG/0.4 ML SYR SQ SCH (17:45)
[2022-10-21] MEDS: SODIUM CHLORIDE 0.9% 1000ML 1,000 ML IV SCH (19:58)
[2022-10-21] MEDS: carvediloL 12.5 MG TAB PO SCH (20:14)
[2022-10-21] MEDS: FAMOTIDINE 20 MG TAB PO SCH (20:14)
[2022-10-21] MEDS ORDERED: amLODIPine BESYLATE 5 MG TAB PO SCH (21:00)
[2022-10-21] MEDS ORDERED: LOSARTAN POTASSIUM 50 MG TAB PO SCH (21:00)
[2022-10-22] MEDS: SODIUM CHLORIDE 0.9% 500 ML IV SCH (00:11)
[2022-10-22 02:21] LABS: A calco-baum cmplx NotReported Not Detected (NotDetected); Bact fragilis Not Reported Not Detected (NotDetected); C auris Not Reported Not Detected (NotDetected); CTX-M Resistant Gene Not Detected (NotDetected); Calbicans Not Reported Not Detected (NotDetected); Candida glabrata Not Reported Not Detected (NotDetected); Candida krusei Not Reported Not Detected (NotDetected); Cneoformans/gatti Not Reported Not Detected (NotDetected); Cparapsilosis Not Reported Not Detected (NotDetected); Ctropicalis Not Reported Not Detected (NotDetected); E cloacae compx Not Reported Not Detected (NotDetected); Efaecalis Not Reported Not Detected (NotDetected); Efaecium Not Reported Not Detected (NotDetected); Enterobacterales DETECTED (NotDetected); Enterobacterales Not Reported DETECTED (NotDetected); Escherichia coli Not Reported DETECTED (NotDetected); H influenzae Not Reported Not Detected (NotDetected); IMP Resistant Gene Not Detected (NotDetected); K aerogenes Not Reported Not Detected (NotDetected); KPC Resistant Gene Not Detected (NotDetected); Koxytoca Not Reported Not Detected (NotDetected); Kpneumoniae grp Not Reported Not Detected (NotDetected); Lmonocyt Not Reported Not Detected (NotDetected); N meningitidis Not Reported Not Detected (NotDetected); NDM Resistant Gene Not Detected (NotDetected); OXA 48 Like Resistant Gene Not Detected (NotDetected); P aeruginosa Not Reported Not Detected (NotDetected); Proteus spp Not Reported Not Detected (NotDetected); Salmonella spp Not Reported Not Detected (NotDetected); Smarcescens Not Reported Not Detected (NotDetected); Staph lugdunensis Not Reported Not Detected (NotDetected); Staph spp. Not Reported Not Detected (NotDetected); Staphaureus Not Reported Not Detected (NotDetected); Staphepi Not Reported Not Detected (NotDetected); Stenmaltophilia Not Reported Not Detected (NotDetected); Strep agal(GrpB) Not Reported Not Detected (NotDetected); Strep pneum Not Reported Not Detected (NotDetected); Strep pyog (GrpA) Not Reported Not Detected (NotDetected); Strep spp Not Reported Not Detected (NotDetected); VIM Resistant Gene Not Detected (NotDetected); mcr-1 Colistin Resistant Gene Not Detected (NotDetected)
[2022-10-22 05:51] LABS: Basophils # (auto) 0.03 K/uL (0-0.2); Basophils % (auto) 0.4 %; Eosinophils # (auto) 0.09 K/uL (0-0.50); Eosinophils % (auto) 1.3 %; Hematocrit (blood only) 33.9 % (42.0-52.0); Hemoglobin 11.8 g/dl (14.0-18.0); Immature Granulocytes # (auto) 0.04 K/uL (0.01-0.20); Immature Granulocytes % (auto) 0.6 %; Lymphocytes # (auto) 0.49 K/uL (1.2-3.4); Mean Corpuscular Hemoglobin 30.3 pg (25.0-34.0); Mean Corpuscular Hgb Conc 34.8 g/dL (32.0-36.0); Mean Corpuscular Volume 87.1 fL (80.0-100.0); Mean Platelet Volume 10.5 fL (9.4-12.4); Monocytes # (auto) 0.97 K/uL (0.11-0.59); Monocytes % (auto) 13.8 %; Neutrophils # (auto) 5.42 K/uL (1.40-6.50); Neutrophils % (auto) 76.9 %; Platelet Count 141 K/uL (130-400); RDW Coefficient of Variation 12.3 % (11.5-14.5); RDW Standard Deviation 39.8 fL (36.4-46.3); Red Blood Count 3.89 M/uL (4.70-6.10); White Blood Count 7.04 K/ul (4.8-10.8)
[2022-10-22 06:21] LABS: Calcium 7.8 mg/dl (8.5-10.1); Potassium 3.3 mmol/L (3.5-5.1)
[2022-10-22 06:26] LABS: BUN Creatinine Ratio 14.2 (10-20); Creatinine Clr Calc Pharmacy 59.7 ml/min; Est GFR (Non-African American) 56.1 ml/min
[2022-10-22] MEDS ORDERED: POTASSIUM CHLORIDE CRTAB 20 MEQ TABCR PO ONE (07:50)
[2022-10-22] MEDS: carvediloL 12.5 MG TAB PO SCH ×2 (08:07→19:48)
[2022-10-22] MEDS: ASPIRIN 81 MG ECTAB PO SCH (08:07)
[2022-10-22] MEDS: FAMOTIDINE 20 MG TAB PO SCH ×2 (08:08→19:47)
[2022-10-22] MEDS: INSULIN ASPART PER UNIT SC SCH ×4 (08:12→19:53)
[2022-10-22] MEDS: LOSARTAN POTASSIUM 25 MG TAB PO SCH ×2 (08:14→19:48)
[2022-10-22] MEDS: cefTRIAXone SODIUM 2,000 MG in DEXTROSE 5% 50 ML IV SCH (08:23)
[2022-10-22] MEDS: SODIUM CHLORIDE 0.9% 1000ML 1,000 ML IV SCH (09:23)
--- NOTE | 2022-10-22 12:27 | Hospitalist Progress Note ---
Date of Service October 22, 2022 Assessment & Plan (1) UTI (urinary tract infection): Plan: Patient is a 71 yr male with H/O PMH DM II, HTN, dyslipidemia, CAD, [place] s/p BIENVENIDO RCA in 2019, chronic diastolic dysfunction, GERD, BPH, NATHAN presented to ER with complaints of dysuria x 6 days, generalized weakness, anorexia. Tactile fever with rigors today, confusion today Complicated Urinary tract infection Gram-negative bacteremia Chronic bladder outlet obstruction Acute Metabolic Encephalopathy-POA --CXR: no acute process --CT Abd/pelvis:No bowel obstruction or bowel wall thickening. Prostamegaly with bladder wall thickening suggestive of chronic bladder outlet obstruction. Correlate with urinalysis to exclude cystitis. No urolith or hydronephrosis. Left greater than right bowel-containing inguinal hernias. Mild hepatosplenomegaly with hepatic steatosis. Mild distention of the gallbladder. --CT Head:No acute intracranial hemorrhage, no evidence of acute territorial infarction or other acute intracranial disease process. --Blood/Urine Culture: Gram-negative bacilli Continue IV Rocephin Plan to repeat blood cultures tomorrow Bladder scan as needed Continue IV fluids Hepatosplenomegaly Hepatic steatosis Advised to follow-up as outpatient (2) Metabolic encephalopathy: Plan: as above (3) Hypokalemia: Plan: Replace and monitor (4) Diabetes mellitus, type 2: Plan: A1c: 5.7 on 07/29/22 Hold home glycemic meds Novolog sliding scale per protocol (5) CAD (coronary artery disease): Plan: [place] S/P BIENVENIDO RCA in 2019 Continue aspirin, carvedilol (6) Hypertension: Plan: BP relatively low Hold Amlodipine Continue carvedilol with holding parameter Decrease losartan to 25 mg twice daily (7) Hyperlipidemia: Plan: H/O statin intolerance On Repatha every 2 weeks (8) Diastolic dysfunction: Plan: 02/2020 Echo: EF: 51%, grade 1 diastolic dysfunction Hold Lasix for now Resume diuretics as able (9) NATHAN (obstructive sleep apnea): Plan: CPAP HS (10) GERD (gastroesophageal reflux disease): Plan: Continue Pepcid DVT Px Lovenox SQ Code Status Full Code Admission and Anticipated Discharge Date Admission Date: October 21, 2022 Subjective Patient is seen and examined at bedside Dysuria, hematuria, confusion resolved No new complaints Feels better Denies any chest pain, dyspnea, dizziness, abd pain Review of Systems Review of Systems: All systems reviewed & are unremarkable except as noted in Subjective Physical Exam Physical Exam: Physical Exam: Vitals signs as noted above General Appearance:Moderately built and nourished, no apparent distress Head: normocephalic, Atraumatic Eyes: normal inspection, EOMI Neck: supple, Trachea midline Respiratory/Chest: Normal breath sounds, CTA, No accessory muscle use Cardiovascular: S1, S2, No murmur Abdomen/GI:Soft, Non tender, Bowel sounds present Extremities/Musculoskeletal:normal inspection, no edema, Chronic venous stasis changes Neurologic/Psych:AAOX3, grossly no focal neurological deficits Skin: normal color, warm Results & Data Results & Data ([facility]) Vital Signs (Past 12 Hours) Vital Signs Temp Pulse Pulse Resp BP Pulse Ox O2 Del Method 10/22/22 11:25 36.9 C 71 16 122/71 95 Room Air 10/22/22 07:43 37.0 C 84 16 114/66 93 Room Air 10/22/22 07:31 87 10/22/22 03:30 37.2 C 71 18 107/61 92 Room Air Laboratory Results Short CBC 10/22/22 Range/Units 05:29 WBC 7.04 (4.8-10.8) K/ul Hgb 11.8 L (14.0-18.0) g/dl Hct 33.9 L (42.0-52.0) % Plt Count 141 (130-400) K/uL BMP 10/21/22 10/22/22 11:30 05:29 Sodium 138 137 Potassium 3.4 L 3.3 L Chloride 100 101 Carbon Dioxide 31 31 BUN 17 18 Creatinine 1.12 1.27 Glucose 152 H 104 H Calcium 8.6 7.8 L Liver Function 10/21/22 Range/Units 11:30 Total Bilirubin 1.1 H (0.2-1.0) mg/dl AST 17 (13-39) U/L ALT 18 (7-52) U/L Alkaline Phosphatase 92 (34-104) U/L Albumin 3.6 (3.4-5.0) gm/dl (1) UTI (urinary tract infection) Hematuria presence: without hematuria Urinary tract infection type: acute cystitis Qualified Code(s): N30.00 - Acute cystitis without hematuria
[2022-10-22] MEDS: ENOXAPARIN INJ 40 MG/0.4 ML SYR SQ SCH (17:04)
[2022-10-23 06:18] LABS: Hematocrit (blood only) 38.9 % (42.0-52.0); Hemoglobin 13.4 g/dl (14.0-18.0); Mean Corpuscular Hemoglobin 30.8 pg (25.0-34.0); Mean Corpuscular Hgb Conc 34.4 g/dL (32.0-36.0); Mean Corpuscular Volume 89.4 fL (80.0-100.0); Mean Platelet Volume 10.1 fL (9.4-12.4); Platelet Count 181 K/uL (130-400); RDW Coefficient of Variation 12.1 % (11.5-14.5); RDW Standard Deviation 39.8 fL (36.4-46.3); Red Blood Count 4.35 M/uL (4.70-6.10); White Blood Count 6.37 K/ul (4.8-10.8)
[2022-10-23 06:45] LABS: Calcium 8.3 mg/dl (8.5-10.1); Potassium 3.9 mmol/L (3.5-5.1)
[2022-10-23 07:04] LABS: BUN Creatinine Ratio 15.2 (10-20); Creatinine Clr Calc Pharmacy 83.3 ml/min; Est GFR (Non-African American) 82.8 ml/min
[2022-10-23] MEDS: ASPIRIN 81 MG ECTAB PO SCH (08:03)
[2022-10-23] MEDS: LOSARTAN POTASSIUM 25 MG TAB PO SCH ×2 (08:03→21:40)
[2022-10-23] MEDS: carvediloL 12.5 MG TAB PO SCH ×2 (08:04→21:40)
[2022-10-23] MEDS: FAMOTIDINE 20 MG TAB PO SCH ×2 (08:04→21:40)
[2022-10-23] MEDS: INSULIN ASPART PER UNIT SC SCH ×4 (08:08→21:01)
[2022-10-23] MEDS: cefTRIAXone SODIUM 2,000 MG in DEXTROSE 5% 50 ML IV SCH (08:09)
--- NOTE | 2022-10-23 15:36 | Hospitalist Progress Note ---
Date of Service October 23, 2022 Assessment & Plan (1) UTI (urinary tract infection): Plan: Patient is a 71 yr male with H/O PMH DM II, HTN, dyslipidemia, CAD, MS s/p BIENVENIDO RCA in 2019, chronic diastolic dysfunction, GERD, BPH, NATHAN presented to ER with complaints of dysuria x 6 days, generalized weakness, anorexia. Tactile fever with rigors today, confusion today Complicated Urinary tract infection Gram-negative bacteremia Chronic bladder outlet obstruction Acute Metabolic Encephalopathy-POA --CXR: no acute process --CT Abd/pelvis:No bowel obstruction or bowel wall thickening. Prostamegaly with bladder wall thickening suggestive of chronic bladder outlet obstruction. Correlate with urinalysis to exclude cystitis. No urolith or hydronephrosis. Left greater than right bowel-containing inguinal hernias. Mild hepatosplenomegaly with hepatic steatosis. Mild distention of the gallbladder. --CT Head:No acute intracranial hemorrhage, no evidence of acute territorial infarction or other acute intracranial disease process. --Blood/Urine Culture: E. coli--2 organisms Continue IV Rocephin for now Repeat blood cultures pending Bladder scan as needed Received IV fluids Hepatosplenomegaly Hepatic steatosis Advised to follow-up as outpatient (2) Metabolic encephalopathy: Plan: as above (3) Hypokalemia: Plan: Replace and monitor (4) Diabetes mellitus, type 2: Plan: A1c: 5.7 on 07/29/22 Hold home glycemic meds Novolog sliding scale per protocol (5) CAD (coronary artery disease): Plan: MS S/P BIENVENIDO RCA in 2019 Continue aspirin, carvedilol (6) Hypertension: Plan: BP relatively low on presentation Hold Amlodipine Continue carvedilol with holding parameter Decrease losartan to 25 mg twice daily (7) Hyperlipidemia: Plan: H/O statin intolerance On Repatha every 2 weeks (8) Diastolic dysfunction: Plan: 02/2020 Echo: EF: 51%, grade 1 diastolic dysfunction Hold Lasix for now Resume diuretics as able (9) NATHAN (obstructive sleep apnea): Plan: CPAP HS (10) GERD (gastroesophageal reflux disease): Plan: Continue Pepcid DVT Px Lovenox SQ Code Status Full Code Admission and Anticipated Discharge Date Admission Date: October 21, 2022 Subjective Patient is seen and examined at bedside Feels Sleepy today Denies any chest pain, dyspnea, dizziness, abd pain, dysuria, hematuria Review of Systems Review of Systems: All systems reviewed & are unremarkable except as noted in Subjective Physical Exam Physical Exam: Physical Exam: Vitals signs as noted above General Appearance:Moderately built and nourished, no apparent distress Head: normocephalic, Atraumatic Eyes: normal inspection, EOMI Neck: supple, Trachea midline Respiratory/Chest: Normal breath sounds, CTA, No accessory muscle use Cardiovascular: S1, S2, No murmur Abdomen/GI:Soft, Non tender, Bowel sounds present Extremities/Musculoskeletal:normal inspection, no edema, Chronic venous stasis changes Neurologic/Psych:AAOX3, grossly no focal neurological deficits Skin: normal color, warm Results & Data Results & Data ([facility]) Vital Signs (Past 12 Hours) Vital Signs Temp Pulse Pulse Resp BP Pulse Ox O2 Del Method 10/23/22 12:09 36.7 C 64 16 126/78 96 Room Air 10/23/22 08:00 71 10/23/22 08:08 37.0 C 72 16 131/75 94 Room Air Laboratory Results Short CBC 10/23/22 Range/Units 05:53 WBC 6.37 (4.8-10.8) K/ul Hgb 13.4 L (14.0-18.0) g/dl Hct 38.9 L (42.0-52.0) % Plt Count 181 (130-400) K/uL BMP 10/23/22 05:53 Sodium 138 Potassium 3.9 Chloride 104 Carbon Dioxide 29 BUN 14 Creatinine 0.92 D Glucose 118 H Calcium 8.3 L (1) UTI (urinary tract infection) Hematuria presence: without hematuria Urinary tract infection type: acute cystitis Qualified Code(s): N30.00 - Acute cystitis without hematuria
[2022-10-23] MEDS: ENOXAPARIN INJ 40 MG/0.4 ML SYR SQ SCH (17:09)
[2022-10-24 08:02] LABS: Hematocrit (blood only) 37.8 % (42.0-52.0); Mean Corpuscular Hemoglobin 30.3 pg (25.0-34.0); Mean Corpuscular Hgb Conc 34.4 g/dL (32.0-36.0); Mean Corpuscular Volume 88.1 fL (80.0-100.0); Mean Platelet Volume 9.8 fL (9.4-12.4); Platelet Count 203 K/uL (130-400); RDW Coefficient of Variation 12.1 % (11.5-14.5); Red Blood Count 4.29 M/uL (4.70-6.10); White Blood Count 7.57 K/ul (4.8-10.8)
[2022-10-24] MEDS: INSULIN ASPART PER UNIT SC SCH ×2 (08:11→11:53)
[2022-10-24] MEDS: FAMOTIDINE 20 MG TAB PO SCH (08:12)
[2022-10-24] MEDS: LOSARTAN POTASSIUM 25 MG TAB PO SCH (08:12)
[2022-10-24] MEDS: ASPIRIN 81 MG ECTAB PO SCH (08:12)
[2022-10-24] MEDS: carvediloL 12.5 MG TAB PO SCH (08:12)
[2022-10-24] MEDS: cefTRIAXone SODIUM 2,000 MG in DEXTROSE 5% 50 ML IV SCH (08:12)
[2022-10-24 08:43] LABS: Calcium 8.6 mg/dl (8.5-10.1); Magnesium 2.1 mg/dl (1.7-2.4); Potassium 3.8 mmol/L (3.5-5.1)
[2022-10-24 08:49] LABS: BUN Creatinine Ratio 10.8 (10-20); Creatinine Clr Calc Pharmacy 82.1 ml/min; Est GFR (African American) 94.7 ml/min; Est GFR (Non-African American) 81.7 ml/min
--- NOTE | 2022-10-24 13:10 | Hospitalist Progress Note ---
Date of Service October 24, 2022 Assessment & Plan (1) UTI (urinary tract infection): Plan: Patient is a 71 yr male with H/O PMH DM II, HTN, dyslipidemia, CAD, CT s/p BIENVENIDO RCA in 2019, chronic diastolic dysfunction, GERD, BPH, NATHAN presented to ER with complaints of dysuria x 6 days, generalized weakness, anorexia. Tactile fever with rigors today, confusion today Complicated Urinary tract infection E coli bacteremia Sepsis due to Escherichia coli, POA Chronic bladder outlet obstruction Acute Metabolic Encephalopathy-POA --CXR: no acute process --CT Abd/pelvis:No bowel obstruction or bowel wall thickening. Prostamegaly with bladder wall thickening suggestive of chronic bladder outlet obstruction. Correlate with urinalysis to exclude cystitis. No urolith or hydronephrosis. Left greater than right bowel-containing inguinal hernias. Mild hepatosplenomegaly with hepatic steatosis. Mild distention of the gallbladder. --CT Head:No acute intracranial hemorrhage, no evidence of acute territorial infarction or other acute intracranial disease process. --Blood/Urine Culture: E. coli Continue IV Rocephin>>Plan to transition to Cefdinir upon discharge Repeat blood cultures: No growth to date Bladder scan as needed Received IV fluids Hepatosplenomegaly Hepatic steatosis Advised to follow-up as outpatient (2) Metabolic encephalopathy: Plan: as above (3) Hypokalemia: Plan: Replace and monitor (4) Diabetes mellitus, type 2: Plan: A1c: 5.7 on 07/29/22 Hold home glycemic meds Novolog sliding scale per protocol (5) CAD (coronary artery disease): Plan: CT S/P BIENVENIDO RCA in 2019 Continue aspirin, carvedilol (6) Hypertension: Plan: BP relatively low on presentation BP improved Continue home meds (7) Hyperlipidemia: Plan: H/O statin intolerance On Repatha every 2 weeks (8) Diastolic dysfunction: Plan: 02/2020 Echo: EF: 51%, grade 1 diastolic dysfunction Resume Lasix (9) NATHAN (obstructive sleep apnea): Plan: CPAP HS (10) GERD (gastroesophageal reflux disease): Plan: Continue Pepcid DVT Px Lovenox SQ Code Status Full Code Admission and Anticipated Discharge Date Admission Date: October 21, 2022 Subjective Patient is seen and examined at bedside States feeling well today No new complaints Denies any chest pain, dyspnea, dizziness, abd pain, dysuria, hematuria Plan to discharge home today Review of Systems Review of Systems: All systems reviewed & are unremarkable except as noted in Subjective Physical Exam Physical Exam: Physical Exam: Vitals signs as noted above General Appearance:Moderately built and nourished, no apparent distress Head: normocephalic, Atraumatic Eyes: normal inspection, EOMI Neck: supple, Trachea midline Respiratory/Chest: Normal breath sounds, CTA, No accessory muscle use Cardiovascular: S1, S2, No murmur Abdomen/GI:Soft, Non tender, Bowel sounds present Extremities/Musculoskeletal:normal inspection, no edema, Chronic venous stasis changes Neurologic/Psych:AAOX3, grossly no focal neurological deficits Skin: normal color, warm Results & Data Results & Data ([facility]) Vital Signs (Past 12 Hours) Vital Signs Temp Pulse Pulse Resp BP Pulse Ox O2 Del Method 10/24/22 11:23 36.8 C 68 18 132/82 95 Room Air 10/24/22 07:07 36.6 C 64 18 147/86 H 95 Room Air 10/24/22 07:07 64 10/24/22 03:33 36.9 C 75 18 134/77 93 Room Air Laboratory Results Short CBC 10/24/22 Range/Units 07:41 WBC 7.57 (4.8-10.8) K/ul Hgb 13.0 L (14.0-18.0) g/dl Hct 37.8 L (42.0-52.0) % Plt Count 203 (130-400) K/uL BMP 10/24/22 07:41 Sodium 139 Potassium 3.8 Chloride 105 Carbon Dioxide 30 BUN 10 Creatinine 0.93 Glucose 112 H Calcium 8.6 (1) UTI (urinary tract infection) Hematuria presence: without hematuria Urinary tract infection type: acute cystitis Qualified Code(s): N30.00 - Acute cystitis without hematuria
--- NOTE | 2022-10-24 13:32 | Discharge Summary ---
Date of Service October 24, 2022 Admission HPI Per Admitting Provider Patient is 71 y/o M with PMH DM II, HTN, dyslipidemia, CAD, ME s/p BIENVENIDO RCA in 2019, chronic diastolic dysfunction, GERD, BPH, NATHAN presented to ER with complaints of not feeling well and dysuria x 6 days. History of obtained from patient as well as patient's and patient's daughter and chart review. Patient states for the past 6 days has been having dysuria. Has been noticing dark-colored urine. 6 days ago started not feeling well with decreased appetite, malaise. Was having dizziness with standing. Denies headache or syncope. Has not been eating or drinking well. Patient complaining of discomfort to abdomen around his umbilicus describing it as "empty stomach hungry feeling". Last couple days has been having bilateral mid back pain. Past several days with generalized weakness with increased weakness today. Having difficulty walking. Today family noted patient with confusion. Had 2 negative home COVID-19 tests this week. Last night with sweats. Did not take temperature. This morning with chills and rigors. Denies ill contacts. Family wanted patient to be seen several days ago however he refused. Today with increased weakness and noted confusion brought patient to ER. Denies history of kidney stones. Denies N/V/D/C, SOTELO, syncope, vision changes, neck pain, CP, SOB, orthopnea, palpitations, cough, sore throat, choking, otalgia, rhinorrhea, paresthesias, extremity edema, rashes, hematuria. Admission Exam Per Admitting Provider Physical Exam Physical Exam: General: no acute distress, WDWN Head: normocephalic, atraumatic Eyes: PERRL, EOM's intact, conjunctiva non-injected, anicteric ENT: normal inspection external ears, nose, mucous membranes mildly dry Neck: supple, trachea midline Lungs: clear, no respiratory distress, no wheezing/rhonchi/rales CV: RRR, no murmur, trace pretibial edema Abd: normal BS, soft, +tenderness to palpation suprapubic, +left CVA tenderness to percussion Ext: no cyanosis, no calf tenderness Neuro: A&O to person, month, day, year. [facility] for location. +intermittent confusion noted, no focal deficits noted, normal affect Skin: warm, dry Principal Diagnosis Complicated Urinary tract infection Sepsis/Bacteremia due to Escherichia coli Chronic bladder outlet obstruction Acute Metabolic Encephalopathy--Resolved Discharge Data Allergies Allergy/AdvReac Type Severity Reaction Status Date / Time lamar Allergy Intermediate Scratchy Verified 01/17/22 06:06 throat metoprolol Allergy Intermediate Itching, Verified 01/17/22 06:06 edema lisinopril Allergy Mild Rash Verified 01/17/22 06:06 Webyatt-BKY-SbZ Reductase AdvReac Intermediate Muscle Verified 01/17/22 06:06 Inhibitor pain, [Hwjlsqw-Vqa-Hqu Reductase joint pain Inhibitor] Consultations 10/21/22 13:08 ED Decision to Admit Stat Procedures Performed Laboratory Results WBC 7.57 K/ul (4.8-10.8) 10/24/22 07:41 RBC 4.29 M/uL (4.70-6.10) L 10/24/22 07:41 Hgb 13.0 g/dl (14.0-18.0) L 10/24/22 07:41 Hct 37.8 % (42.0-52.0) L 10/24/22 07:41 MCV 88.1 fL (80.0-100.0) 10/24/22 07:41 MCH 30.3 pg (25.0-34.0) 10/24/22 07:41 MCHC 34.4 g/dL (32.0-36.0) 10/24/22 07:41 RDW Std Deviation 39.0 fL (36.4-46.3) 10/24/22 07:41 RDW Coeff of Zachary 12.1 % (11.5-14.5) 10/24/22 07:41 Plt Count 203 K/uL (130-400) 10/24/22 07:41 MPV 9.8 fL (9.4-12.4) 10/24/22 07:41 Immature Gran % (Auto) 0.6 % 10/22/22 05:29 Neut % (Auto) 76.9 % 10/22/22 05:29 Lymph % (Auto) 7.0 % 10/22/22 05:29 Lincoln % (Auto) 13.8 % 10/22/22 05:29 Eos % (Auto) 1.3 % 10/22/22 05:29 Baso % (Auto) 0.4 % 10/22/22 05:29 Neut # (Auto) 5.42 K/uL (1.40-6.50) 10/22/22 05:29 Lymph # (Auto) 0.49 K/uL (1.2-3.4) L 10/22/22 05:29 Lincoln # (Auto) 0.97 K/uL (0.11-0.59) H 10/22/22 05:29 Eos # (Auto) 0.09 K/uL (0-0.50) 10/22/22 05:29 Baso # (Auto) 0.03 K/uL (0-0.2) 10/22/22 05:29 Immature Gran # (Auto) 0.04 K/uL (0.01-0.20) 10/22/22 05:29 Toxic Granulation 1+ 10/21/22 11:30 Toxic Vacuolation 1+ 10/21/22 11:30 Tear Drop Cells 1+ 10/21/22 11:30 Sodium 139 mmol/L (136-145) 10/24/22 07:41 Potassium 3.8 mmol/L (3.5-5.1) 10/24/22 07:41 Chloride 105 mmol/L (98-107) 10/24/22 07:41 Carbon Dioxide 30 mmol/L (21-32) 10/24/22 07:41 Anion Gap 4 (3-11) 10/24/22 07:41 BUN 10 mg/dl (6-23) 10/24/22 07:41 Creatinine 0.93 mg/dl (0.6-1.4) 10/24/22 07:41 Est Cr Clr Drug Dosing 82.1 ml/min 10/24/22 07:41 Est GFR ( Amer) 94.7 ml/min 10/24/22 07:41 Est GFR (Non-Af Amer) 81.7 ml/min 10/24/22 07:41 BUN/Creatinine Ratio 10.8 (10-20) 10/24/22 07:41 Glucose 112 mg/dl (70-99(Fasting)) H 10/24/22 07:41 POC Glucose 143 mg/dl (70-99) H 10/24/22 11:47 Lactate 1.9 mmol/L (0.4-2.0) 10/21/22 11:30 Calcium 8.6 mg/dl (8.5-10.1) 10/24/22 07:41 Magnesium 2.1 mg/dl (1.7-2.4) 10/24/22 07:41 Total Bilirubin 1.1 mg/dl (0.2-1.0) H 10/21/22 11:30 AST 17 U/L (13-39) 10/21/22 11:30 ALT 18 U/L (7-52) 10/21/22 11:30 Alkaline Phosphatase 92 U/L (34-104) 10/21/22 11:30 Troponin I High Sens 12.6 pg/ml (0-20) 10/21/22 11:30 B-Natriuretic Peptide 54 pg/ml (0-100) 10/21/22 11:30 Total Protein 6.4 gm/dl (6.0-8.3) 10/21/22 11:30 Albumin 3.6 gm/dl (3.4-5.0) 10/21/22 11:30 Globulin 2.8 gm/dl (2.5-4.0) 10/21/22 11:30 Albumin/Globulin Ratio 1.3 (0.9-2) 10/21/22 11:30 Lipase 39 U/L (11-82) 10/21/22 11:30 Procalcitonin 18.65 ng/ml (0-0.5) H 10/23/22 05:53 Urine Color Yellow 10/21/22 Unknown Urine Appearance Cloudy (Clear) A 10/21/22 Unknown Urine pH 6.5 (4.5-7.5) 10/21/22 Unknown Ur Specific [place] 1.014 (1.000-1.030) 10/21/22 Unknown Urine Protein 2+ (Negative) H 10/21/22 Unknown Urine Glucose (UA) Negative (Negative) 10/21/22 Unknown Urine Ketones Negative (Negative) 10/21/22 Unknown Urine Blood 2+ (Negative) H 10/21/22 Unknown Urine Nitrite Positive (Negative) A 10/21/22 Unknown Urine Bilirubin Negative (Negative) 10/21/22 Unknown Urine Urobilinogen Negative (Negative) 10/21/22 Unknown Ur Leukocyte Esterase 3+ (Negative) H 10/21/22 Unknown Urine WBC (Auto) >30 /hpf (0-5) H 10/21/22 Unknown Urine RBC (Auto) 5-10 /hpf (0-4) H 10/21/22 Unknown U Hyaline Cast (Auto) 1-5 /lpf (0-5) 10/21/22 Unknown U Epithel Cells (Auto) 5-10 /lpf (0-5) H 10/21/22 Unknown Urine Bacteria (Auto) 4+ (Negative) H 10/21/22 Unknown Urine Yeast Not Reportable 10/21/22 Unknown SARS-CoV-2 (PCR) NEGATIVE (Negative) 10/21/22 11:30 Enterobacterales (PCR) DETECTED (NotDetected) A 10/21/22 11:50 E. coli (PCR) DETECTED (NotDetected) A 10/21/22 11:50 Influenza Type A (PCR) Negative (Neg) 10/21/22 11:30 Influenza Type B (PCR) Negative (Neg) 10/21/22 11:30 RSV (RT-PCR) Negative (Neg) 10/21/22 11:30 mcr-1 Colistin Res Gene PCR Not Detected (NotDetected) 10/21/22 11:50 blaIMP Car res Gene PCR Not Detected (NotDetected) 10/21/22 11:50 KPC-Carbap Res Gene PCR Not Detected (NotDetected) 10/21/22 11:50 blaNDM Car Res Gene PCR Not Detected (NotDetected) 10/21/22 11:50 OXA-48 Carbapenem Resis Gene (PCR) Not Detected (NotDetected) 10/21/22 11:50 blaVIM Car Res Gene PCR Not Detected (NotDetected) 10/21/22 11:50 CTX-M Gene Resistance (PCR) Not Detected (NotDetected) 10/21/22 11:50 Bld Cult ID Panel PCR See PCR Comment (NotDetected) 10/21/22 11:50 Impressions Abdomen/Pelvis CT 10/21/22 11:[address] WITHOUT CONTRAST CT DOSE: 821.85 mGy.cm HISTORY: Acute generalized abdominal pain with fever abd pain, fever TECHNIQUE: Multiaxial CT images of the abdomen and pelvis were performed without contrast. A dose lowering technique was utilized adhering to the principles of ALARA. COMPARISON STUDY: Chest radiograph of same day FINDINGS: Mild cardiomegaly with trace pericardial effusion. Coronary artery calcifications. Mild linear scarring versus atelectasis of the basal left lower lobe. 3 mm subpleural solid nodule of the right middle lobe, image 33. No pneumatosis or pneumoperitoneum. The unenhanced spleen is mildly enlarged, 14.6 cm. Unremarkable pancreas and adrenal glands. Mild distention of the gallbladder. Hepatic steatosis with mild hepatomegaly. No hepatic mass identified. Nonspecific bilateral perinephric stranding. No ureteral calculi or hydronephrosis. Probable cyst of the posterior interpolar left kidney, 1.7 cm. Prostamegaly with urinary bladder wall thickening and partial distention. The pelvic structures are not well seen secondary to streak artifact from the hip arthroplasties. Small moderate right and moderate left inguinal hernias containing mesenteric fat, trace fluid and nonobstructed loops of bowel. Atherosclerosis of the aorta without aneurysm. 9 mm precaval lymph node on image 263. Mild nonspecific distal esophageal wall thickening. Colonic diverticulosis. No bowel obstruction or bowel wall thickening. Moderate colonic fecal retention. Normal appendix. Mild gynecomastia. Degenerative changes of the spine. Bilateral hip total joint arthroplasties. No acute fracture or destructive bone lesion identified. Mild lumbar levoscoliosis. IMPRESSION: 1. No bowel obstruction or bowel wall thickening. 2. Prostamegaly with bladder wall thickening suggestive of chronic bladder outlet obstruction. Correlate with urinalysis to exclude cystitis. 3. No urolith or hydronephrosis. 4. Left greater than right bowel-containing inguinal hernias. 5. Mild hepatosplenomegaly with hepatic steatosis. 6. Mild distention of the gallbladder. ACT 112: Negative or not required by law. The above report was generated using voice recognition software. It may contain grammatical, syntax or spelling errors. Electronically signed by: King Sanders M.D. 10/21/2022 1:22 PM Chest X-Ray 10/21/22 11:25 XR chest 1V portable HISTORY: 71 years-old Male fever acute shortness of breath with fever COMPARISON: Chest radiographs 08/09/2011 TECHNIQUE: AP view of the chest FINDINGS: Cardiomediastinal and hilar silhouettes are within normal limits. No pneumothorax, pleural effusion, airspace consolidation or overt pulmonary edema. Degenerative changes of the shoulders and spine. IMPRESSION: No acute process. ACT 112: Negative or not required by law. The above report was generated using voice recognition software. It may contain grammatical, syntax or spelling errors. Electronically signed by: King Sanders M.D. 10/21/2022 11:[address] 10/21/22 13:32 CT head/brain wo con CLINICAL HISTORY: AMS Technique: Contiguous axial CT images of the head were acquired from the base of the skull to the vertex without intravenous contrast administration. Images were viewed in brain, subdural and bone windows. Automated dose lowering techniques and/or adjustment according to patient size were utilized for this exam. Comparison: None available at the time of this dictation. Findings: Areas of decreased attenuation are present in the periventricular and subcortical white matter bilaterally consistent with small vessel ischemic disease. Generalized cerebral atrophy with commensurate enlargement of the ventricles, sulci, and cisterns is also present. There is no acute intracranial hemorrhage or evidence of acute territorial infarction. No shift of the midline structures, mass effect, or extra-axial abnormalities are shown. Atherosclerotic calcifications are present in the intracranial segments of the internal carotid arteries. Imaged portions of the paranasal sinuses and mastoid air cells are clear. The orbits appear normal. There are no acute fractures of the calvaria or scalp swelling. Impression: No acute intracranial hemorrhage, no evidence of acute territorial infarction or other acute intracranial disease process. ACT 112: Negative or not required by law. Electronically signed by: Danish Witt M.D. 10/21/2022 2:53 PM Ordered Studies 10/21/22 11:23 CT stones [CT abd pelvis wo con] Stat 10/21/22 13:32 CT head/brain wo con Stat Hospital Course (1) UTI (urinary tract infection): Patient is a 71 yr male with H/O PMH DM II, HTN, dyslipidemia, CAD, ME s/p BIENVENIDO RCA in 2019, chronic diastolic dysfunction, GERD, BPH, NATHAN presented to ER with complaints of dysuria x 6 days, generalized weakness, anorexia. Tactile fever with rigors today, confusion today Complicated Urinary tract infection E coli bacteremia Sepsis due to Escherichia coli, POA Chronic bladder outlet obstruction Acute Metabolic Encephalopathy-POA --CXR: no acute process --CT Abd/pelvis:No bowel obstruction or bowel wall thickening. Prostamegaly with bladder wall thickening suggestive of chronic bladder outlet obstruction. Correlate with urinalysis to exclude cystitis. No urolith or hydronephrosis. Left greater than right bowel-containing inguinal hernias. Mild hepatosplenomegaly with hepatic steatosis. Mild distention of the gallbladder. --CT Head:No acute intracranial hemorrhage, no evidence of acute territorial infarction or other acute intracranial disease process. --Blood/Urine Culture: E. coli Continue IV Rocephin>>Plan to transition to Cefdinir upon discharge Repeat blood cultures: No growth to date Bladder scan as needed Received IV fluids Hepatosplenomegaly Hepatic steatosis Advised to follow-up as outpatient (2) Metabolic encephalopathy: as above (3) Hypokalemia: Replace and monitor (4) Diabetes mellitus, type 2: A1c: 5.7 on 07/29/22 Hold home glycemic meds Novolog sliding scale per protocol (5) CAD (coronary artery disease): ME S/P BIENVENIDO RCA in 2019 Continue aspirin, carvedilol (6) Hypertension: BP relatively low on presentation BP improved Continue home meds (7) Hyperlipidemia: H/O statin intolerance On Repatha every 2 weeks (8) Diastolic dysfunction: 02/2020 Echo: EF: 51%, grade 1 diastolic dysfunction Resume Lasix (9) NATHAN (obstructive sleep apnea): CPAP HS (10) GERD (gastroesophageal reflux disease): Continue Pepcid DVT Px Lovenox SQ Code Status Full Code Total Time Total Time Spent Total Time Spent (In Minutes): 48 minutes Discharge Plan Discharge Items Patient Disposition: Home - Self-Care Reason For Visit: UTI Discharge Diagnosis: Complicated Urinary tract infection Sepsis/Bacteremia due to Escherichia coli Chronic bladder outlet obstruction Acute Metabolic Encephalopathy--Resolved Activity: Per Instructions section Exercise/Sports: Wait until after follow-up appointment Non-emergency contact: Primary Care Provider Call non-emergency contact if: you have any medication questions, your symptoms worsen, your pain is concerning for you and you have a fever Follow-up/Referrals: Raghavendra Damon DO [Primary Care Provider] - (Date & Time 10/28/2022 11:00 AM Provider Amada Simmons MD Department Family Practice [facility] ) Diet: Carb Consistent or DM2 and Heart Healthy Addtl Attending Provider Instructions: Follow-up with your primary care physician Dr. Damon on 10/28/2022 11:00 AM Follow-up with your urologist in 3-4 weeks for evaluation of Prostate enlargement and bladder wall thickeningnoted on CT scan --- Complete the antibiotic course cefdinir as prescribed. (Start taking from 10/25/2022) -- Monitor your blood pressure regularly at home. If blood pressure medications may need to be readjusted. Discuss with your physician for further recommendations. -- Your blood cultures from 10/23/22 are pending at the time of discharge. Follow-up with your physician for results. --You are noted to have enlarged liver, enlarged spleen on CT. Follow-up with your physician for further recommendations. Seek immediate medical attention if your symptoms reoccur or worsen Please take all medications as instructed on discharge list below. Please call if you have any questions or problems. You can reach a [facility] hospitalist on duty at [facility] 24 hours a day by calling [phone] Pending Studies at Discharge: Yes Studies:: Blood Cultures Stand-Alone Forms: [facility], Smoking Cessation Medications and DC Order Prescriptions: New cefdinir 300 mg capsule 300 mg PO BID Qty: 22 0RF Rx Instructions: Start taking from 10/25/22 Continued Ozempic 0.25 mg or 0.5 mg(2 mg/1.5 mL) Pen Injector 0.5 mg SUBCUT WK Rx Instructions: takes on Monday morning losartan 50 mg Tablet 50 mg PO BID furosemide 40 mg Tablet 40 mg PO QAM metformin 500 mg Tablet 500 mg PO BID carvedilol 12.5 mg Tablet 12.5 mg PO BID amlodipine 2.5 mg Tablet 2.5 mg PO BID aspirin 81 mg Tablet 81 mg PO QAM Repatha Syringe 140 mg/mL Syringe 140 mg SUBCUT UD Rx Instructions: every other week for cholesterol acetaminophen 500 mg Tablet 500 mg PO Q6H PRN (Reason: Pain) famotidine [Pepcid] 20 mg Tablet 20 mg PO BID nitroglycerin 0.4 mg Tablet, Sublingual 0.4 mg sublingual UD PRN (Reason: Chest Pain) Rx Instructions: 1 tab SL every 5min prn CP, up to 3 doses in 15 minues Discharge Orders: Discharge Order (Routine); Ordered 10/24/22 Ordered By: Kvng Orantes Admission Data Admit Date/Time: 10/21/22 14:36 Attending Provider: Kvng Orantes Admit Provider: Sherwin Zayas Primary Care Provider: Raghavendra Damon Other Providers: Sherwin Zayas
== END 2022-10-24 15:53 | disposition home or self-care (01) | DRG 871 ==
LOC: ED 10:53 → SUATTDRO 14:36 → EDINP 14:36 → 2W 16:45